=== PATIENT | female | born 1970 | race Caucasian/White ===

== ENCOUNTER 2022-10-14 09:07 | Day surgery (SDC) | payer OTHER ==
[~2022-10-14] VITALS: Ht 152.4 cm; Wt 62.1 kg
[2022-10-14] MEDS ORDERED: diphenhydrAMINE 50 MG/ML VIAL ONE (10:04)
[2022-10-14] MEDS ORDERED: LIDOCAINE 2% 100 MG/5 ML UJET TP ONE (10:04)
[2022-10-14] MEDS ORDERED: MIDAZOLAM 2 MG/2 ML VIAL ONE (10:04)
[2022-10-14] MEDS ORDERED: fentaNYL citrate 0.05 MG/ML VIAL ONE (10:04)
[2022-10-14] MEDS ORDERED: MIDAZOLAM 2 MG/2 ML VIAL IVP ONE (12:15)
[2022-10-14] MEDS ORDERED: fentaNYL citrate 0.05 MG/ML VIAL IVP ONE (12:15)
== END 2022-10-14 12:14 | disposition home or self-care (01) ==
LOC: MOR 09:07 → MMU 09:07 → MOR 12:14
PROVIDERS: ATTEND Internal Medicine Gastroenterology
DX: Z12.11 Encounter for screening for malignant neoplasm of colon (principal); K63.5 Polyp of colon; E03.9 Hypothyroidism, unspecified; F32.A Depression, unspecified; Z90.710 Acquired absence of both cervix and uterus; Z79.899 Other long term (current) drug therapy
CPT/HCPCS: 45380; 45385; 88305; J2250; J3010; J1200